=== PATIENT | female | born 2000 ===

== ENCOUNTER 2024-09-20 06:25 | Outpatient (REF) | payer OTHER, SELFPAY | END 2024-09-20 06:26 | disposition home or self-care (01) | LOC: HO.UMASIMG 06:25 | PROVIDERS: Visit Provider Nurse Practitioner Women's Health | DX: Z13.89 Encounter for screening for other disorder (principal) ==

== ENCOUNTER 2024-10-16 08:51 | Outpatient (REF) | payer OTHER, SELFPAY ==
--- NOTE | ~2024-10-16 | US_ITS ---
EXAMINATION: US PELVIS TRANSABDOMINAL AND TRANSVAGINAL HISTORY: PELVIC PAIN, H/O LEFT OV CYST COMPARISON: There are no prior studies for comparison. TECHNIQUE: Transabdominal and endovaginal real-time 2D kirby-scale ultrasound was performed. Color Doppler was also performed. FINDINGS: Uterus: The uterus is normal in size, measuring 9.0 x 4.4 x 5.2 cm. Myometrium has a normal echotexture. No fibroids are identified. Endometrium: The endometrial stripe measures 1 mm in thickness. There is a small amount of free fluid in the endometrial canal. Right ovary: The right ovary measures 1.8 x 1.3 x 1.0 cm. The right ovary is normal in size and echotexture. Left ovary: The left ovary measures 1.7 x 2.2 x 1.3 cm. The left ovary is normal in size and echotexture. Color Doppler analysis of the bilateral ovarian arteries and veins are normal. Pelvic fluid: none. US/US pelvic and transvaginal IMPRESSION: Small amount of free fluid in the endometrial canal. Otherwise unremarkable pelvic ultrasound. Electronically signed by: Jass Silverman MD 10/16/2024 12:41 PM [facility] [place]
== END 2024-10-16 08:52 | disposition home or self-care (01) ==
LOC: HO.UMASIMG 08:51
PROVIDERS: Visit Provider Nurse Practitioner Women's Health
DX: R10.9 Unspecified abdominal pain (principal); Z87.442 Personal history of urinary calculi
CPT/HCPCS: 76830; 76856

== ENCOUNTER → 2024-10-16 11:15 | Outpatient (BNV) | payer OTHER, SELFPAY | PROVIDERS: Visit Provider Radiology Diagnostic Radiology | DX: R10.2 Pelvic and perineal pain (principal) | CPT/HCPCS: 76830; 76856 ==